=== PATIENT | female | born 1995 | race Caucasian/White ===

== ENCOUNTER 2018-03-18 00:59 | Emergency (ER) | payer OTHER ==
[~2018-03-18] VITALS: Ht 157.5 cm; Wt 54.9 kg
[2018-03-18 01:20] LABS: HEMATOCRIT 37.3 % (36.0-46.0); HEMOGLOBIN 12.6 G/DL (11.9-15.5); MCH 29.7 PG (29.0-34.0); MCHC 33.8 G/DL (30.0-36.0); PLATELET COUNT 263 K/uL (156-360); RBC DIS.WIDTH-CV 12.9 % (11.8-14.6); RBC DIS.WIDTH-SD 41.4 % (39-53); RED BLOOD COUNT 4.24 M/uL (3.80-5.20); WHITE BLOOD COUNT 7.2 K/uL (4.1-10.2)
[2018-03-18 01:30] LABS: ALBUMIN 4.5 g/dL (3.2-4.8); CHLORIDE 104 mEq/L (99-109); POTASSIUM 3.6 mEq/L (3.7-5.4); SODIUM 140 mEq/L (136-147)
[2018-03-18 01:33] LABS: GLUCOSE 92 mg/dL (70-99); TOTAL PROTEIN 7.3 g/dL (6.4-8.3)
[2018-03-18 01:34] LABS: TOTAL BILIRUBIN 0.5 mg/dL (0.0-1.0)
[2018-03-18 01:36] LABS: ALKALINE PHOSPHATASE 71 IU/L (3-129); CREATININE 0.7 mg/dL (0.6-1.3); GFR ESTIMATE (CALCULATED) > 59 mL/min/
[2018-03-18 01:37] LABS: UREA NITROGEN (BUN) 10 mg/dL (9-23)
[2018-03-18 01:38] LABS: AST (GOT) 28 IU/L (2-34)
[2018-03-18 01:39] LABS: ALT (GPT) 30 IU/L (3-49)
[2018-03-18 01:40] LABS: LIPASE 35 U/L (1.0-51.0)
[2018-03-18 01:46] LABS: QUANTITATIVE HCG < 4.0 MIU/ML
[2018-03-18 01:50] LABS: APPEARANCE SL.HAZY ((CLEAR)); BILIRUBIN NEGATIVE; BLOOD NEGATIVE; COLOR STRAW ((YELLOW)); GLUCOSE (STRIP) NEGATIVE; KETONES NEGATIVE; LEUKOCYTES LARGE; NITRITE NEGATIVE; PROTEIN (STRIP) NEGATIVE; SPECIFIC GRAVITY 1.004 (1.000-1.030); UROBILINOGEN 0.2 MG/DL (0.2-1.0)
[2018-03-18 01:54] LABS: BACTERIA RARE /HPF; EPITHELIAL CELLS 3+ /HPF; MUCUS NONE SEEN /LPF; RED BLOOD CELLS 0-5 /HPF (0-5); UCUL ADDED? NO; WHITE BLOOD CELLS 0-5 /HPF (0-5)
[2018-03-18] MEDS ORDERED: ZOFRAN4 MG PO (03:19)
[2018-03-18] MEDS ORDERED: MOTRIN400 MG PO (03:19)
[2018-03-18] MEDS ORDERED: BENTYL20 MG PO (03:19)
[2018-03-18] MEDS ORDERED: NORCO 5/3251 TABLET PO (03:19)
[2018-03-18 03:58] VITALS: BP 129/78
[2018-03-18] MEDS ORDERED: NEXIUM20 MG PO (14:56)
[2018-03-18] MEDS ORDERED: CLARITIN10 MG PO (14:56)
== END 2018-03-18 03:59 | disposition home or self-care (01) ==
LOC: EME 00:59
DX: R19.00 Intra-abdominal and pelvic swelling, mass and lump, unspecified site (principal); N83.8 Other noninflammatory disorders of ovary, fallopian tube and broad ligament; R10.9 Unspecified abdominal pain; Z97.5 Presence of (intrauterine) contraceptive device
CPT/HCPCS: 74177; 80053; 81003; 83690; 84702; 85027; 99281; 99285; J2405; J3010; J7030

== ENCOUNTER 2018-03-18 22:07 | Inpatient (IN) | payer OTHER ==
[~2018-03-18] VITALS: Ht 160 cm; Wt 54.4 kg
[~2018-03-18 22:07] MED LIST: BENTYL20 MG PO; CLARITIN10 MG PO; MOTRIN400 MG PO; NEXIUM20 MG PO; NORCO 5/3251 TABLET PO; ZOFRAN4 MG PO
[2018-03-19 09:39] VITALS: BP 119/80
[2018-03-19 13:43] VITALS: BP 117/59
[2018-03-19 15:00] VITALS: BP 107/67
[2018-03-19 20:39] VITALS: BP 102/63
[2018-03-20] VITALS (7 sets, daily range): BP systolic 99–108; BP diastolic 57–72
[2018-03-20 06:20] LABS: HEMATOCRIT 33.5 % (36.0-46.0); HEMOGLOBIN 11.2 G/DL (11.9-15.5); MCH 29.5 PG (29.0-34.0); MCHC 33.4 G/DL (30.0-36.0); MCV 88.2 FL (83-99); PLATELET COUNT 248 K/uL (156-360); RBC DIS.WIDTH-CV 12.6 % (11.8-14.6); RBC DIS.WIDTH-SD 40.5 % (39-53); WHITE BLOOD COUNT 9.9 K/uL (4.1-10.2)
[2018-03-20 06:45] LABS: CHLORIDE 105 MEQ/L (99-109); CREATININE 0.6 MG/DL (0.6-1.3); GFR ESTIMATE (CALCULATED) > 59 mL/min/; GLUCOSE 96 mg/dL (70-99); POTASSIUM 4.1 MEQ/L (3.7-5.4); SODIUM 139 MEQ/L (136-147); UREA NITROGEN (BUN) 5 mg/dL (9-23)
[2018-03-20] MEDS ORDERED: PERCOCET 5/31 TABLET PO (08:58)
[2018-03-20] MEDS ORDERED: IBU800 MG PO (08:58)
[2018-03-21] VITALS (7 sets, daily range): BP systolic 86–113; BP diastolic 52–74
[2018-03-21 06:13] LABS: HEMATOCRIT 33.6 % (36.0-46.0); HEMOGLOBIN 10.8 G/DL (11.9-15.5); MCH 28.9 PG (29.0-34.0); MCHC 32.1 G/DL (30.0-36.0); MCV 89.8 FL (83-99); PLATELET COUNT 234 K/uL (156-360); RBC DIS.WIDTH-CV 12.8 % (11.8-14.6); RBC DIS.WIDTH-SD 41.6 % (39-53); RED BLOOD COUNT 3.74 M/uL (3.80-5.20); WHITE BLOOD COUNT 7.5 K/uL (4.1-10.2)
[2018-03-22 04:01] VITALS: BP 102/67
[2018-03-22 07:11] VITALS: BP 100/64
[2018-03-22] MEDS ORDERED: DOCUSATE SODIU100 MG PO (09:39)
== END 2018-03-22 10:49 | disposition home or self-care (01) | DRG 357 ==
LOC: ENRESERV 22:07 → 2SOUTH 03-19 05:54 → 2EAST 03-19 08:38 → ENRESERV 03-19 11:42 → 2EAST 03-19 13:35 → 2SOUTH 03-19 14:30 → ENPENDDIS 03-22 10:02 → 2EAST 03-22 10:49
PROVIDERS: Obstetrics & Gynecology
DX: R19.00 Intra-abdominal and pelvic swelling, mass and lump, unspecified site (principal); D62 Acute posthemorrhagic anemia; N83.9 Noninflammatory disorder of ovary, fallopian tube and broad ligament, unspecified
CPT/HCPCS: 36415; 74177; 80048; 80053; 80061; 81003; 83690; 84443; 84702; 85025; 85027; 86850; 86900; 86901; 87491; 87591; 88307; 88331; 99281; 99285; J0131; J0330; J0690; J1100; J1170; J1885; J2250; J2405; J2765; J3010; J7030; J7120